=== PATIENT | female | born 1980 | race African-American/Black ===

== ENCOUNTER 2017-01-15 11:57 | Emergency (ER) | payer OTHER ==
[~2017-01-15] VITALS: Ht 152.4 cm; Wt 53.5 kg
[2017-01-15 12:01] VITALS: Ht 152.4 cm; Wt 53.5 kg
[2017-01-15] MEDS ORDERED: LIDOCAINE/MYLANTA 40 ML BTL PO STA (12:14)
[2017-01-15] MEDS ORDERED: BELLADONNA/PHENOBARBITAL TAB PO STA (12:14)
[2017-01-15] MEDS ORDERED: ONDANSETRON (ODT) 4 MG TAB ODT STA (12:30)
[2017-01-15] MEDS ORDERED: ONDANSETRON (ODT) 4 MG TAB ODT ONE (12:31)
[2017-01-15 12:38] LABS: BASOPHIL # 0.1 10^3/ul (0.0-0.1); BASOPHILS % 0.6 % (0.0-2.0); EOSINOPHILS # 0.1 10^3/ul (0.0-0.5); HEMATOCRIT 37.3 % (37.0-47.0); HEMOGLOBIN 12.8 g/dl (12.0-16.0); LYMPHOCYTES # 2.7 10^3/ul (0.8-2.9); LYMPHOCYTES % 32.1 % (15.0-51.0); MEAN CORPUSCULAR HEMOGLOBIN 26.7 pg (29.0-33.0); MEAN CORPUSCULAR HGB CONC 34.3 g/dl (32.0-37.0); MEAN CORPUSCULAR VOLUME 77.7 fl (82.0-101.0); MEAN PLATELET VOLUME 9.5 fl (7.4-10.4); MONOCYTE # 0.7 10^3/ul (0.3-0.9); MONOCYTES % 8.8 % (0.0-11.0); NEUTROPHILS % 57.3 % (39.0-77.0); PLATELET COUNT 335 10^3/UL (140-415); RED CELL DISTRIBUTION WIDTH 14.6 % (11.5-14.5); WHITE BLOOD COUNT 8.3 10^3/ul (4.8-10.8)
[2017-01-15 12:52] LABS: ADD UMIC YES; UR AMORPHOUS CRYSTAL MANY /HPF (NONE SEEN); UR ASCORBIC ACID 40 mg/dL (NEGATIVE); UR BACTERIA FEW /HPF (NONE SEEN); UR BILIRUBIN (Dip) NEGATIVE (NEGATIVE); UR BLOOD (Dip) NEGATIVE (NEGATIVE); UR CLARITY CLOUDY (CLEAR); UR COLOR YELLOW (YELLOW); UR GLUCOSE (Dip) NEGATIVE (NEGATIVE); UR KETONES (Dip) NEGATIVE (NEGATIVE); UR LEUKOCYTE ESTERASE (Dip) TRACE Leu/ul (NEGATIVE); UR NITRITE (Dip) NEGATIVE (NEGATIVE); UR RBC 3 /HPF (0-5); UR SQUAMOUS EPITHELIAL CELL FEW /HPF (FEW); UR TOTAL PROTEIN (Dip) NEGATIVE (NEGATIVE); UR UROBILINOGEN (Dip) NEGATIVE (NEGATIVE)
[2017-01-15 13:05] LABS: ALBUMIN 4.4 g/dl (3.3-4.9); ALBUMIN/GLOBULIN RATIO 1.41; BILIRUBIN,INDIRECT 0.5 mg/dl (0-1.1); BILIRUBIN,TOTAL 0.5 mg/dl (0.2-1.3); CALCIUM 9.8 mg/dl (8.4-10.2); CREATININE 0.92 mg/dl (0.44-1.00); POTASSIUM 3.8 mmol/L (3.5-5.1); TOTAL PROTEIN 7.5 g/dl (6.1-8.1)
[2017-01-15] MEDS ORDERED: FAMO40TA52 PO (13:14)
[2017-01-15] MEDS ORDERED: ONDA4TAB14 PO (13:14)
--- NOTE | 2017-01-15 13:20 | ERD ---
ER Documentation Chief Complaint Date/Time DATE: 01/15/17 TIME: 13:16 Chief Complaint Complains of abdominal pain x 1 week HPI This is a 36-year-old female who is complaining of epigastric pain that she has had on and off for 1 week. She states sometimes she eats it makes it worse but sometimes she eats and makes it better. She admits to episodes of nausea and vomiting but she is tolerating oral intake. She has tried Pepto-Bismol and [place] without any relief. She denies any fever. She denies any lower abdominal or pelvic pain. She denies any dysuria hematuria or urinary frequency. Last menstrual period was approximately 1 week ago. ROS All systems reviewed and are negative except as per history of present illness. Medications Home Meds Active Scripts Ondansetron (Ondansetron Odt) 4 Mg Tab.rapdis, 4 MG PO Q6H Y for NAUSEA AND/OR VOMITING, #20 TAB Prov:ENDER BAINS PA-C 01/15/17 Famotidine* (Famotidine*) 40 Mg Tablet, 40 MG PO BID, #60 TAB Prov:ENDER BAINS PA-C 01/15/17 Allergies Allergies: Coded Allergies: No Known Allergy (Unverified , 01/15/17) PMhx/Soc Medical and Surgical Hx: pt denies Medical Hx, pt denies Surgical Hx Hx Alcohol Use: Yes Hx Substance Use: No Hx Tobacco Use: No Smoking Status: Never smoker FmHx Family History: No diabetes Physical Exam Vitals Vital Signs Date Time Temp Pulse Resp B/P Pulse Ox O2 Delivery O2 Flow Rate FiO2 01/15/17 12:01 98.4 76 20 104/51 100 Physical Exam INITIAL VITAL SIGNS: Reviewed by me GENERAL: Awake, alert and oriented x 4, well appearing, nontoxic, speaking in full sentences. No acute distress HEAD: Atraumatic EYES: EOMI. PERRL. THROAT: No tonilar erythema or edema. No exudates. Uvula midline. No kissing tonsils. NECK: Supple. No masses. Full range of motion. No meningismus. No midline tenderness. RESPIRATORY: Clear to auscultation bilaterally. Symmetric chest wall rise. No wheezing or rales. No accessory muscle use. CV: Regular rate and rhythm. No murmurs, rubs, or gallops. ABDOMEN: Soft, non-distended. Nontender. Negative [place]. Negative McBurneys point tenderness. No CVA tenderness bilaterally. No guarding. No rebound. : Deffered. Result Diagram: 01/15/17 1226 01/15/17 1226 Results 24 hrs Laboratory Tests Test 01/15/17 12:26 White Blood Count 8.310^3/ul Red Blood Count 4.8010^6/ul Hemoglobin 12.8g/dl Hematocrit 37.3% Mean Corpuscular Volume 77.7fl Mean Corpuscular Hemoglobin 26.7pg Mean Corpuscular Hemoglobin Concent 34.3g/dl Red Cell Distribution Width 14.6% Platelet Count 86435^3/UL Mean Platelet Volume 9.5fl Neutrophils % 57.3% Lymphocytes % 32.1% Monocytes % 8.8% Eosinophils % 1.0% Basophils % 0.6% Nucleated Red Blood Cells % 0.0/100WBC Neutrophils # (Manual) 510^3/ul Lymphocytes # 2.710^3/ul Monocytes # 0.710^3/ul Eosinophils # 0.110^3/ul Basophils # 0.110^3/ul Nucleated Red Blood Cells # 0.010^3/ul Urine Color YELLOW Urine Clarity CLOUDY Urine pH 7.0 Urine Specific [place] 1.020 Urine Ketones NEGATIVEmg/dL Urine Nitrite NEGATIVEmg/dL Urine Bilirubin NEGATIVEmg/dL Urine Urobilinogen NEGATIVEmg/dL Urine Leukocyte Esterase TRACELeu/ul Urine Microscopic RBC 3/HPF Urine Microscopic WBC 10/HPF Urine Squamous Epithelial Cells FEW/HPF Urine Amorphous Crystals MANY/HPF Urine Bacteria FEW/HPF Urine Hemoglobin NEGATIVEmg/dL Urine Glucose NEGATIVEmg/dL Urine Total Protein NEGATIVEmg/dl Sodium Level 139mmol/L Potassium Level 3.8mmol/L Chloride Level 100mmol/L Carbon Dioxide Level 29mmol/L Anion Gap 14 Blood Urea Nitrogen 13mg/dl Creatinine 0.92mg/dl Glucose Level 97mg/dl Calcium Level 9.8mg/dl Total Bilirubin 0.5mg/dl Direct Bilirubin 0.00mg/dl Indirect Bilirubin 0.5mg/dl Aspartate Amino Transf (AST/SGOT) 17IU/L Alanine Aminotransferase (ALT/SGPT) 25IU/L Alkaline Phosphatase 38IU/L Total Protein 7.5g/dl Albumin 4.4g/dl Globulin 3.10g/dl Albumin/Globulin Ratio 1.41 Lipase 58U/L Current Medications Medications (Trade) Dose Ordered Sig/Fermin Route PRN Reason Start Time Stop Time Status Last Admin Dose Admin Miscellaneous Medication (Gi Cocktail (2)) 40 ml ONCE STAT PO 01/15/17 12:14 01/15/17 12:16 DC 01/15/17 12:28 [place]/ Phenobarbital () 2 tab ONCE STAT PO 01/15/17 12:14 01/15/17 12:16 DC 01/15/17 12:28 Ondansetron HCl (Zofran Odt) 4 mg ONCE STAT ODT 01/15/17 12:30 01/15/17 12:31 DC 01/15/17 12:32 Ondansetron HCl (Zofran Odt) 4 mg STK-MED ONCE ODT 01/15/17 12:31 01/15/17 12:32 DC Procedures/MDM 36-year-old presents with abdominal pain. Patients is alert, oriented, well appearing, and in no distress with normal vital signs. There is no fever, tachycardia, or tachypnea. Laboratory analysis shows no evidence of acute emergent abnormality. No evidence of significant leukocytosis suggesting systemic infection or severe anemia. No evidence of acute renal or liver failure , no evidence of severe alkalosis or acidosis. The differential diagnosis includes but is not limited to appendicitis, cholelithiasis, cholecystitis, pancreatitis, hepatitis, gastritis, peptic ulcer disease, bowel obstruction, diverticulitis, renal disease including stones, torsion, AAA, pyelonephritis, and others. Patient had good relief of her symptoms with GI cocktail. She was discharged with Pepcid and Zofran as well as copies of labs she can follow with primary care. Patient counseled regarding my diagnostic impression and care plan. Prior to discharge all questions answered. Pt agrees with treatment plan and understands strict return precautions. Pt is instructed to follow up with primary care provider within 24-48 hours. Precautionary instructions provided including instructions to return to the ER if not improving or for any worsening or changing symptoms or concerns. Departure Diagnosis: Primary Impression: Gastritis Condition: Stable Patient Instructions: Gastritis (Adult) Additional Instructions: Call your primary care doctor TOMORROW for an appointment during the next 1-2 days.See the doctor sooner or return here if your condition worsens before your appointment time. ENDER BAINS PA-C Jan 15, 2017 13:19
== END 2017-01-15 13:21 | disposition home or self-care (01) ==
LOC: FTE 11:57
DX: K29.70 Gastritis, unspecified, without bleeding (principal); R11.2 Nausea with vomiting, unspecified
CPT/HCPCS: 36415; 80053; 81001; 83690; 85025; Z7502; Z7610; 99283

== ENCOUNTER 2018-03-19 11:10 | Emergency (ER) | END 2018-03-19 15:19 | disposition home or self-care (01) ==

== ENCOUNTER 2018-06-22 12:24 | Emergency (ER) | payer OTHER ==
[~2018-06-22] VITALS: Wt 52.0 kg
[~2018-06-22 12:24] MED LIST: ACET500C5 PO; ALBU8.5H8 INH; BENZ-6 PO; FAMO40TA5 PO; FLUT9.9S NASAL; ONDA4TAB14 PO; PRED20TA PO; RANI150T35 PO
[2018-06-22] MEDS ORDERED: LIDOCAINE/MYLANTA 40 ML BTL PO STA (13:46)
[2018-06-22] MEDS ORDERED: MAG-19 PO (15:26)
--- NOTE | 2018-06-22 18:30 | ERD ---
ER Documentation Chief Complaint Chief Complaint ABD PAIN, PT HERE YESTERDAY WITH SAME S/S, STATES NOT GETTING BETTER HPI 38-year-old female presents for abdominal pain times 2 days. She was seen yesterday for the same symptoms and was told to return to the ED if pain continues. She has had abdominal pain for about a year on and off, she states that couple days ago the pain got worse which brought her to the ER. The pain is in the left upper quadrant and epigastric area, rated 10 out of 10, intermittent. She denies any nausea vomiting or diarrhea. Denies chest pain or shortness of breath. She has not picked up the medication that she was prescribed yesterday. Review of record shows that patient was prescibed ranitidine, Zofran. She had blood work, gallbladder ultrasound, CT abdomen pelvis without contrast done yesterday and was told that it was unremarkable. ROS All systems reviewed and are negative except as per history of present illness. Medications Home Meds Active Scripts Magaldrate/Simethicone* (Mylanta*) 355 Ml Susp, 30 ML PO QID PRN for GASTROINTESTINAL UPSET, #1 BOTTLE Prov:LIZZIEOTIS 06/22/18 Ondansetron (Ondansetron Odt) 4 Mg Tab.rapdis, 4 MG PO Q6H PRN for NAUSEA AND/OR VOMITING, #10 TAB Prov:JUAN C BUSH PA-C 06/21/18 Fluticasone Propionate (Flonase Allergy Relief) 9.9 Ml [place].susp, 1 SPRAY NASAL DAILY, #1 BOTTLE TO EACH NOSTRIL Prov:JUAN C BUSH PA-C 06/21/18 Ranitidine Hcl* (Zantac*) 150 Mg Tablet, 150 MG PO BID PRN for EPIGASTRIC PAIN, #30 TAB Prov:JUAN C BUSH PA-C 06/21/18 Acetaminophen* (Tylophen*) 500 Mg Capsule, 1 CAP PO Q6H PRN for PAIN AND OR ELEVATED TEMP, #20 CAP Prov:JUAN C BUSH PA-C 06/21/18 Prednisone* (Prednisone*) 20 Mg Tab, 40 MG PO DAILY for 4 Days, TAB Prov:JUAN C BUSH PA-C 03/19/18 Albuterol Sulfate* (Proair HFA*) 8.5 Gm Hfa.aer.ad, 2 PUFF INH Q4, #1 INHALER Prov:JUAN C BUSH Jenny WANG 03/19/18 Benzonatate* (Tessalon Perle*) 100 Mg Capsule, 100 MG PO Q8H PRN for COUGH, #20 CAP Prov:JUAN C BUSH Jenny WANG 03/19/18 Ondansetron (Ondansetron Odt) 4 Mg Tab.rapdis, 4 MG PO Q6H PRN for NAUSEA AND/OR VOMITING, #20 TAB Prov:ENDER BAINS PA-C 01/15/17 Famotidine* (Famotidine*) 40 Mg Tablet, 40 MG PO BID, #60 TAB Prov:BAINSENDER PA-C 01/15/17 Allergies Allergies: Coded Allergies: No Known Allergy (Unverified , 06/21/18) PMhx/Soc Medical and Surgical Hx: pt denies Medical Hx, pt denies Surgical Hx Hx Alcohol Use: Yes (socially) Hx Substance Use: No Hx Tobacco Use: No Physical Exam Vitals Vital Signs Date Temp Pulse Resp B/P (MAP) Pulse Ox O2 O2 Flow FiO2 Time Delivery Rate 06/22/18 97.1 61 17 112/62 100 12:30 (79) Physical Exam Const: No acute distress Resp: Clear to auscultation bilaterally Cardio: Regular rate and rhythm, no murmurs Abd: Soft, non distended. Normal bowel sounds, there is some tenderness to palpation of the left upper quadrant and epigastric area, no McBurney's point tenderness, no Stone sign, no rebound or guarding noted Skin: No petechiae or rashes Back: No midline or flank tenderness Ext: No cyanosis, or edema Neur: Awake and alert Psych: Normal Mood and Affect Results 24 hrs Laboratory Tests Test 06/22/18 14:05 White Blood Count 8.7 10^3/ul Red Blood Count 4.79 10^6/ul Hemoglobin 12.5 g/dl Hematocrit 37.0 % Mean Corpuscular Volume 77.2 fl Mean Corpuscular Hemoglobin 26.1 pg Mean Corpuscular Hemoglobin Concent 33.8 g/dl Red Cell Distribution Width 14.6 % Platelet Count 348 10^3/UL Mean Platelet Volume 9.8 fl Immature Granulocytes % 0.200 % Neutrophils % 52.6 % Lymphocytes % 31.8 % Monocytes % 4.6 % Eosinophils % 9.9 % Basophils % 0.9 % Nucleated Red Blood Cells % 0.0 /100WBC Immature Granulocytes # 0.020 10^3/ul Neutrophils # 4.5 10^3/ul Lymphocytes # 2.8 10^3/ul Monocytes # 0.4 10^3/ul Eosinophils # 0.9 10^3/ul Basophils # 0.1 10^3/ul Nucleated Red Blood Cells # 0.0 10^3/ul Sodium Level 142 mmol/L Potassium Level 4.9 mmol/L Chloride Level 100 mmol/L Carbon Dioxide Level 28 mmol/L Anion Gap 14 Blood Urea Nitrogen 11 mg/dl Creatinine 0.88 mg/dl Est Glomerular Filtrat Rate mL/min > 60 mL/min Glucose Level 105 mg/dl Calcium Level 10.2 mg/dl Total Bilirubin 0.2 mg/dl Direct Bilirubin 0.00 mg/dl Indirect Bilirubin 0.2 mg/dl Aspartate Amino Transf (AST/SGOT) 18 IU/L Alanine Aminotransferase (ALT/SGPT) 26 IU/L Alkaline Phosphatase 38 IU/L Total Protein 7.8 g/dl Albumin 4.5 g/dl Globulin 3.30 g/dl Albumin/Globulin Ratio 1.36 Lipase 121 U/L Current Medications Medications Dose Sig/Fermin Start Time Status Last (Trade) Ordered Route PRN Stop Time Admin Dose Reason Admin 40 ml ONCE STAT 06/22/18 DC 06/22/18 Miscellaneous PO 13:46 14:13 Medication 06/22/18 13:47 (Gi Cocktail (2)) Procedures/MDM Medical Decision Making: Differential diagnosis includes but not limited to acute gastritis, acute gastroenteritis, appendicitis, cholecystitis, pancreatitis. Patient appeared well on physical exam. Nontoxic appearing. There was left upper quadrant and epigastric tenderness to palpation. Labs: CBC showed no anemia, no elevated WBC to suggest infection CMP showed no electrolyte abnormalities, there was normal kidney and liver function Lipase was normal Urine and UA done yesterday was unremarkable. Imaging: No imaging was done this visit because patient had gallbladder ultrasound and CT abdomen and pelvis without contrast yesterday which was unremarkable. ED course: Patient was given GI cocktail. Symptoms improved with treatment. Prescription(s): Patient given prescription for Mylanta. Patient possibly has gastritis. There is low suspicion for acute abdomen at this point. Patient advised to follow up with PCP in 1-2 days. Patient advised to return to ED for new or worsening symptoms. Patient stable on discharge from the ED. Disclaimer: Inadvertent spelling and grammatical errors are likely due to EHR/dictation software use and do not reflect on the overall quality of patient care. Also, please note that the electronic time recorded on this note does not necessarily reflect the actual time of the patient encounter. Departure Diagnosis: Primary Impression: Abdominal pain Condition: Fair Patient Instructions: Abdominal Pain Referrals: [facility] YOU HAVE RECEIVED A MEDICAL SCREENING EXAM AND THE RESULTS INDICATE THAT YOU DO NOT HAVE A CONDITION THAT REQUIRES URGENT TREATMENT IN THE EMERGENCY DEPARTMENT. FURTHER EVALUATION AND TREATMENT OF YOUR CONDITION CAN WAIT UNTIL YOU ARE SEEN IN YOUR DOCTORS OFFICE WITHIN THE NEXT 1-2 DAYS. IT IS YOUR RESPONSIBILITY TO MAKE AN APPOINTMENT FOR FOLOW-UP CARE. IF YOU HAVE A PRIMARY DOCTOR --you should call your primary doctor and schedule an appointment IF YOU DO NOT HAVE A PRIMARY DOCTOR YOU CAN CALL OUR PHYSICIAN REFERRAL HOTLINE AT IF YOU CAN NOT AFFORD TO SEE A PHYSICIAN YOU CAN CHOSE FROM THE FOLLOWING [facility] [id number] [facility]. [facility] [address] [facility] [facility] [address] [facility] [facility] [address] [facility]. [facility] [address] [facility]. [facility]. [address] Additional Instructions: Call your primary care doctor TOMORROW for an appointment during the next 1-2 days.See the doctor sooner or return here if your condition worsens before your appointment time. Follow up with gastroenterology. OTIS SAMUEL DO Jun 22, 2018 18:30
== END 2018-06-22 15:37 | disposition home or self-care (01) ==
LOC: FTE 12:24
DX: R10.9 Unspecified abdominal pain (principal)
CPT/HCPCS: 80053; 83690; 85025; Z7502; Z7610; 99283

== ENCOUNTER 2018-09-21 13:44 | Emergency (ER) | payer OTHER ==
[~2018-09-21] VITALS: Wt 52.7 kg
[~2018-09-21 13:44] MED LIST changes: +MAG-19 PO
[2018-09-21] MEDS ORDERED: ACETAMINOPHEN 325 MG TAB PO ONE (16:00)
[2018-09-21] MEDS ORDERED: IBUP-1561 PO (17:25)
[2018-09-21] MEDS ORDERED: ACET1TAB40 PO (17:25)
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
[2018-09-21 17:47] VITALS: BP 114/75; PULSE 59; RESP 18
== END 2018-09-21 17:49 | disposition home or self-care (01) ==
LOC: FTE 13:44
DX: S33.5XXA Sprain of ligaments of lumbar spine, initial encounter (principal); S13.9XXA Sprain of joints and ligaments of unspecified parts of neck, initial encounter; V89.2XXA Person injured in unspecified motor-vehicle accident, traffic, initial encounter
CPT/HCPCS: 72040; 72100; 81003; 81025; Z7502; Z7610